=== PATIENT | male | born 1985 | race Caucasian/White ===

== ENCOUNTER 2016-03-27 19:18 | Inpatient (IN) ==
[2016-03-27] MEDS ORDERED: PANTOPRAZOLE 40 MG VIAL IV STA (20:51)
[2016-03-27] MEDS ORDERED: ONDANSETRON 4 MG/2 ML VIAL IV STA (20:51)
[2016-03-27] MEDS ORDERED: HYDROmorphone 2 MG/1 ML VIAL IV STA (20:51)
[2016-03-27] MEDS ORDERED: ALUM/MAG/SIMETH/LIDO VISC 1:1 30 ML BOTTLE PO STA (20:51)
[2016-03-27] MEDS ORDERED: SODIUM CHLORIDE 0.9% 500 ML IV STA (20:51)
[2016-03-27 20:58] LABS: Basophils % 0.3 % (0.0-0.8); Eosinophils # 0.1 10*3/uL (0.0-0.87); Eosinophils % 0.7 % (0.00-10.9); Hematocrit 45.8 VOL% (42.0-52.0); Hemoglobin 15.2 GM/DL (14.0-18.0); Immature Granulocytes % 0.6 %; Immature Granulocytes Absolute 0.06 #; Lymphocytes # 1.8 10*3/uL (1.4-4.0); Lymphocytes % 18.5 % (21.2-54.2); Mean Corpuscular HGB Conc 33.2 GM/DL (32-36); Mean Corpuscular Hemoglobin 26 PG (27-34); Mean Corpuscular Volume 79.1 FL (87-102); Mean Platelet Volume 11.7 FL (9.6-12.0); Monocytes # 0.7 10*3/uL (0.11-0.8); Monocytes % 6.9 % (1.7-12.7); Platelet Count 197 10*3/uL (130-400); Red Blood Count 5.79 10*6/uL (3.8-5.5); Red Cell Distribution Width 13.9 % (9.3-17.3); White Blood Count 9.6 10*3/uL (4.5-13.71)
[2016-03-27 21:10] LABS: Apearance,Urine CLEAR (Clear); Bilirubin,Urine Negative (Negative); Blood, Urine Negative (Negative); Glucose,Urine (UA) Negative (Negative); Granular Casts,Urine 17 /LPF (0-1); Hyaline Casts,Urine 7 /LPF (0-3); Ketones,Urine Negative (Negative); Mucus,Urine Occasional /LPF (Occasional); Nitrite,Urine Negative (Negative); Protein,Urine Negative; Urine Color Yellow (Yellow); Urine Specific Gravity 1.011 (1.001-1.035); Urine Urobilinogen < 2.0 EU/DL (0.2-1.0); WBC,Urine 2 /HPF (0-6)
--- NOTE | 2016-03-27 21:11 | Emergency Department Note ---
IZainab Sierra, am scribing for, and in the presence of, Eleazar Lisa MD 20:56. Sloan Will Charles R, MD, personally performed the services described in this documentation, ascribed by Chandni Lamb in my presence, and it is both accurate and complete . Arrival - Arrival Chief Complaint: Abdominal / Flank Pain Stated Complaint: ABDOMINAL PAIN/NAUSEA/VOMITING ED Nursing Triage Note: C/C abdominal pain, N/V/D started . Has got worse since. Mode of Arrival: Ambulatory Limitations: No Limitations Source: Patient Time Seen by Provider: 03/27/16 20:42 - History of Present Illness HPI Narrative: Pt is a 31 y/o male that came to the ED with c/o central abdominal pain that radiated to both sides of his back that started February. He has associated sxs of N/V/D but denies fever. Pt states he did notice some blood in stool. Pt reports pain is constant just superior to the umbilicus but pain in sides and back come and go. He has a PMHx of HTN and is being treated for possible DM. No other complaints/pain in ED. Onset (ago): day(s) Consistency: constant Allergies/Adverse Reactions: Allergies Allergy/AdvReac Type Severity Reaction Status Date / Time No Known Allergies Allergy Unverified 03/27/16 19:40 Home Medications: Home Medications Medication Instructions Recorded Confirmed Type Ciprofloxacin Tab [Cipro Tab] 500 mg PO Q12HR 10 Days 03/27/16 Rx HYDROcodone/ACETAMIN 10-325 [[place] 1 tablet PO Q6H PRN #20 tablet 03/27/16 Rx 10-325] Lisinopril 20 mg PO DAILY 03/27/16 03/27/16 History Omeprazole [Prilosec] 20 mg PO DAILY 03/27/16 03/27/16 History Ondansetron [Ondansetron Odt] 8 mg PO Q4H PRN #10 tab.rapdis 03/27/16 Rx metFORMIN [Glucophage] 500 mg PO BID W/MEALS 03/27/16 03/27/16 History metroNIDAZOLE TAB [Flagyl Tab] 250 mg PO TID 10 Days 03/27/16 Rx Review of System - Review of System 12 point system: reviewed and no additional remarkable complaints except as stated - Review of System Constitutional: Absent: chills, fever Respiratory: Absent: cough, respiratory distress Cardiovascular: Absent: chest pain Gastrointestinal: Present: abdominal pain (superior to umbilicus), nausea, vomiting, diarrhea, hematochezia Musculoskeletal: Present: back pain (bilaterally radiating from constant pain in abdomen). Absent: arm pain Skin: Absent: rash Neurological: Absent: headache Psychiatric: Absent: anxiety Medical,Surgical,& Family Hx - Medical History Cardio: History of: Hypertension Endocrine: History of: Diabetes Mellitus (NIDDM) - Social History Smoking Status: Current every day smoker Frequency of Alcohol Use: Occasionally Type of Drug Use: None Exam Vital Signs: Vital Signs Temperature 98 F 03/27/16 19:37 Pulse Rate 93 H 03/27/16 22:21 Respiratory Rate 17 03/27/16 22:21 Blood Pressure 111/79 03/27/16 22:21 O2 Sat by Pulse Oximetry 96 03/27/16 22:21 - General General appearance: alert, in no apparent distress - Head Head exam: Present: atraumatic, normocephalic - Eye Eye exam: Present: PERRL, EOMI - ENT ENT exam: Present: mucous membranes moist. Absent: mucous membranes dry - Neck Neck exam: Present: full ROM. Absent: tenderness - Chest Chest inspection: Present: symmetric chest wall rise. Absent: tenderness - Respiratory Respiratory exam: Present: normal lung sounds bilaterally. Absent: respiratory distress - Cardiovascular Cardiovascular exam: Present: tachycardia (slightly), normal heart sounds - Abdominal Exam Abdominal exam: Present: soft, tenderness (diffuse abdomen tenderness), diminished bowel sounds - Extremities Exam Extremities exam: Present: full ROM. Absent: tenderness - Back Exam Back exam: Present: full ROM. Absent: tenderness - Neurological Exam Neurological exam: Present: alert, oriented X3, CN II-XII intact. Absent: motor sensory deficit - Psychiatric Psychiatric exam: Present: normal affect, normal mood - Skin Skin exam: Present: warm, dry Course - Reevaluation(s) Reevaluation #1: Patient was offered admission to the hospital because his continued mild abdominal pain. CT shows colitis. Patient is refusing admission to the hospital said he'll come back if things get worse like to try by mouth antibiotics and conservative therapy at home he'll return if things worsen Time: 23:11 Results - Labs CBC & BMP: 03/27/16 20:19 03/27/16 20:19 Lab Results: I have reviewed the patients labs Labs: Laboratory Tests 03/27/16 20:19 RBC 5.79 H MCV 79.1 L MCH 26 L Lymph % (Auto) 18.5 L Laboratory Tests 03/27/16 20:19 Urine Urobilinogen < 2.0 H Laboratory Tests 03/27/16 20:19 Albumin/Globulin Ratio 1.0 L Amylase 23 L - Diagnostic Findings Procedure: Abdominal x-ray: report reviewed by me (No specific process is suggested within the abdomen or pelvis), Chest x-ray: report reviewed by me (No evidence of acute pathology), CT Abdomen and Pelvis: report reviewed by me (1. Short segment of distal sigmoid/upper rectum demonstrates wall thickening that persists in the delayed phase it has differential considerations including focal inflammatory change. 2. Findings compatible with hepatic steatosis.) Disposition Clinical Impression: Abdominal pain, Colitis, Gastroenteritis Case discussed with: patient, patient's family Disposition: Disch To Home/Self Care Condition: Stable Additional Instructions: Push fluids. Return to the ER for any acute changes. Follow-up primary care doctor Prescriptions: Ciprofloxacin Tab [Cipro Tab] 500 mg PO Q12HR 10 Days HYDROcodone/ACETAMIN 10-325 [[place] 10-325] 1 tablet PO Q6H PRN #20 tablet PRN Reason: Pain Ondansetron [Ondansetron Odt] 8 mg PO Q4H PRN #10 tab.rapdis PRN Reason: Nausea metroNIDAZOLE TAB [Flagyl Tab] 250 mg PO TID 10 Days Time of Disposition: 23:13 Contact your physician if you experience:: fever over 101, Difficulty voiding, Redness or swelling, Nausea/Vomiting, Shortness of breath, Bleeding, pain uncontrolled by pain medications, Other Return to the Emergency Department if:: fever over 101, Difficulty voiding, Redness or swelling, Nausea/Vomiting, Shortness of breath, Bleeding, pain uncontrolled by pain medications, Other
[2016-03-27] MEDS ORDERED: HYDROmorphone 2 MG/1 ML VIAL ONE (21:12)
[2016-03-27] MEDS ORDERED: PANTOPRAZOLE 40 MG VIAL IV ONE (21:12)
[2016-03-27] MEDS ORDERED: ONDANSETRON 4 MG/2 ML VIAL ONE (21:12)
[2016-03-27] MEDS ORDERED: ALUM/MAG/SIMETH/LIDO VISC 1:1 30 ML BOTTLE PO ONE (21:13)
--- NOTE | 2016-03-27 21:15 | XRay Report ---
XR abdomen 2V Indication: Abdominal pain. Comparison: None. Technique: Flat and erect images of the abdomen were performed. Findings: Lung bases are clear. No organomegaly suggested. The bowel gas pattern demonstrates no significant abnormality. Bony structures as well as soft tissues demonstrate no evidence of significant pathology. Impression: 1. No specific process is suggested within the abdomen or pelvis. 03/27/2016 9:11 PM PROCEDURE INTERPRETED AT [facility] DEPARTMENT OF RADIOLOGY Final Report Signed by: Dr. Hayder Gutierrez
--- NOTE | 2016-03-27 21:15 | XRay Report ---
XR chest 1V portable Indication: Abdominal pain. Comparison: None. Technique: Portable AP chest was performed. Findings: Heart size, mediastinal contour, and hilar structures demonstrate no evidence of acute pathology. Lungs are clear. Bones and soft tissues demonstrate no evidence of acute pathology. Impression: 1. No evidence of acute pathology. 03/27/2016 9:11 PM PROCEDURE INTERPRETED AT [facility] DEPARTMENT OF RADIOLOGY Final Report Signed by: Dr. Hayder Gutierrez
[2016-03-27 21:21] LABS: Alanine Aminotransferase 61 U/L (16-61); Albumin 3.8 G/DL (3.4-5.0); Alkaline Phosphatase 74 U/L (45-117); Amylase 23 U/L (25-115); Aspartate Amino Transferase 35 U/L (0-37); Blood Urea Nitrogen 7 MG/DL (7-18); Calcium 8.7 MG/DL (8.5-10.1); Glucose 99 MG/DL (74-106); Potassium 3.8 MMOL/L (3.5-5.1); Sodium 143 MMOL/L (136-145); Total Protein 7.3 G/DL (6.4-8.3); Troponin I Only < 0.015 NG/ML (0.00-0.045)
--- NOTE | 2016-03-27 22:29 | CT Report ---
CT abdomen pelvis w con Indication: Generalized abdominal pain. Comparison: None. Technique: CT of the abdomen and pelvis was performed following administration of intravenous contrast. Findings: Liver demonstrates diffusely low attenuation suggesting hepatic steatosis. Spleen is minimally enlarged measuring 17.8 5.3 x 10.8 cm. Significance of this is uncertain. Minimal diverticulosis of the colon is present. A short segment of rectum/distal sigmoid image #140 demonstrates evidence of wall thickening which persists on the delayed phase. This involves a short segment of bowel and while this may simply reflect lack of distention, focal inflammatory process is not entirely excluded. Otherwise, the imaged structures of the lower chest, liver, spleen, pancreas, adrenal glands, kidneys, aorta, inferior vena cava, stomach, bowel, and intrapelvic contents as well as bony structures soft tissues and musculature the body wall demonstrate no evidence of significant pathology. Impression: 1. Short segment of distal sigmoid/upper rectum demonstrates wall thickening that persists in the delayed phase it has differential considerations including focal inflammatory change. 2. Findings compatible with hepatic steatosis. 03/27/2016 9:56 PM PROCEDURE INTERPRETED AT [facility] DEPARTMENT OF RADIOLOGY Final Report Signed by: Dr. Hayder Gutierrez
[2016-03-27] MEDS ORDERED: LEVOFLOXACIN 750 MG TABLET PO STA (23:14)
[2016-03-27] MEDS ORDERED: metroNIDAZOLE 500 MG TABLET PO STA (23:14)
[2016-03-27] MEDS ORDERED: LEVOFLOXACIN 750 MG TABLET ONE (23:23)
[2016-03-27] MEDS ORDERED: metroNIDAZOLE 500 MG TABLET ONE (23:23)
[2016-03-28] MEDS ORDERED: ONDANSETRON 4 MG/2 ML VIAL IV PRN (00:29)
[2016-03-28] MEDS ORDERED: DEXTROSE 50% 25 GM/50 ML VIAL IV PRN (00:32)
[2016-03-28] MEDS ORDERED: GLUCAGON 1 MG VIAL IM PRN (00:32)
--- NOTE | 2016-03-28 00:49 | Hospitalist History & Physical ---
Assessment and Plan (1) Abdominal pain Status: Acute Current Visit: Yes (2) Colitis Status: Acute Current Visit: Yes (3) Gastroenteritis Status: Acute Assessment and plan: Plan for this patient #1 admit the patient our service #2 IV antibiotics #[address] #4 pain control #5 home meds appropriate Current Visit: Yes History of Present Illness Chief complaint: abdominal pain History of present illness: Mr. Shook is a 31 year old male with past medical history of diabetes and hyper pretension who was his normal state of health till last . Patient developed a sharp periumbilical pain that radiated both sides to his back. He reported that he had nausea vomiting diarrhea on Saturday. By Saturday his symptoms had resolved. Within the symptoms returned today and he came up to our hospital further evaluation I was consulted to admit the patient based on results of the CT scan which showed a short segment of the distal sigmoid demonstrated wall thickening that include focal inflammatory change. Home Medications Medication Instructions Recorded Confirmed Type Ciprofloxacin Tab [Cipro Tab] 500 mg PO Q12HR 10 Days 03/27/16 Rx HYDROcodone/ACETAMIN 10-325 [[place] 1 tablet PO Q6H PRN #20 tablet 03/27/16 Rx 10-325] Lisinopril 20 mg PO DAILY 03/27/16 03/27/16 History Omeprazole [Prilosec] 20 mg PO DAILY 03/27/16 03/27/16 History Ondansetron [Ondansetron Odt] 8 mg PO Q4H PRN #10 tab.rapdis 03/27/16 Rx metFORMIN [Glucophage] 500 mg PO BID W/MEALS 03/27/16 03/27/16 History metroNIDAZOLE TAB [Flagyl Tab] 250 mg PO TID 10 Days 03/27/16 Rx Allergies Allergy/AdvReac Type Severity Reaction Status Date / Time No Known Allergies Allergy Unverified 03/27/16 19:40 Medical,Surgical,& Family Hx - Medical History Cardio: History of: Hypertension Endocrine: History of: Diabetes Mellitus (NIDDM) - Social History Smoking Status: Current every day smoker Frequency of Alcohol Use: Occasionally Type of Drug Use: None 12 point system: reviewed and no additional remarkable complaints except as stated Exam - Constitutional Vitals: Period Temp Pulse Resp BP Sys/Chavez Pulse Ox Last 24 Hr 98 F 86-103 17-22 111-162/79-98 96-100 - General General appearance: alert, in no apparent distress - Head Head exam: Present: atraumatic, normocephalic - Eye Eye exam: Present: PERRL, EOMI - ENT ENT exam: Present: mucous membranes moist. Absent: mucous membranes dry - Neck Neck exam: Present: full ROM. Absent: tenderness - Chest Chest inspection: Present: symmetric chest wall rise. Absent: tenderness - Respiratory Respiratory exam: Present: normal lung sounds bilaterally. Absent: respiratory distress - Cardiovascular Cardiovascular exam: Present: regular rate and rhythm normal heart sounds - Abdominal Exam Abdominal exam: Present: soft, tenderness (diffuse abdomen tenderness), diminished bowel sounds - Extremities Exam Extremities exam: Present: full ROM. Absent: tenderness - Back Exam Back exam: Present: full ROM. Absent: tenderness - Neurological Exam Neurological exam: Present: alert, oriented X3, CN II-XII intact. Absent: motor sensory deficit - Psychiatric Psychiatric exam: Present: normal affect, normal mood - Skin Skin exam: Present: warm, dry Results - Labs CBC & BMP: 03/27/16 20:19 03/27/16 20:19
[2016-03-28] MEDS ORDERED: HYDROmorphone 2 MG/1 ML VIAL IV PRN (01:24)
[2016-03-28] MEDS: SODIUM CHLORIDE 0.9% 1,000 ML IV SCH ×2 (02:30→18:15)
[2016-03-28 06:18] LABS: Basophils % 0.3 % (0.0-0.8); Eosinophils # 0.1 10*3/uL (0.0-0.87); Hematocrit 40.5 VOL% (42.0-52.0); Hemoglobin 13.1 GM/DL (14.0-18.0); Immature Granulocytes % 0.7 %; Immature Granulocytes Absolute 0.05 #; Lymphocytes # 1.7 10*3/uL (1.4-4.0); Lymphocytes % 23.6 % (21.2-54.2); Mean Corpuscular HGB Conc 32.3 GM/DL (32-36); Mean Corpuscular Hemoglobin 26 PG (27-34); Mean Corpuscular Volume 80.4 FL (87-102); Mean Platelet Volume 11.7 FL (9.6-12.0); Monocytes # 0.7 10*3/uL (0.11-0.8); Neutrophils # 4.7 10*3/uL (1.4-7.4); Neutrophils % 65.4 % (38.7-73.9); Platelet Count 169 10*3/uL (130-400); Red Blood Count 5.04 10*6/uL (3.8-5.5); Red Cell Distribution Width 14.2 % (9.3-17.3); White Blood Count 7.2 10*3/uL (4.5-13.71)
[2016-03-28 06:44] LABS: Calcium 8.2 MG/DL (8.5-10.1); Osmolality,Calculated 280.1 MOS/KG (273-304); Potassium 3.8 MMOL/L (3.5-5.1)
[2016-03-28 06:54] LABS: Band Neutrophils 2 % (0-10); Eosinophils 1 % (0-10); Hypochromasia Slight; Lymphocytes 25 % (20-55); Microcytosis 1+; Segmented Neutrophils 61 % (50-85); Total Cells Counted 100
[2016-03-28 06:55] LABS: Platelet Estimate Adequate
[2016-03-28] MEDS: metroNIDAZOLE INJ 500 MG in PREMIX 1 EACH IV SCH ×3 (08:17→20:36)
[2016-03-28] MEDS: INSULIN REGULAR 100 UNIT/ML SUBCUT SCH ×4 (08:24→20:37)
[2016-03-28] MEDS: PANTOPRAZOLE 40 MG TABLET PO SCH (08:26)
[2016-03-28] MEDS: LISINOPRIL 20 MG TABLET PO SCH (08:27)
--- NOTE | 2016-03-28 09:01 | Hospitalist Progress Note ---
Assessment and Plan (1) Abdominal pain Status: Acute Assessment and plan: Abdominal pain is less today. CT scan was compatible with colitis. I have consulted GI. Current Visit: Yes Hospitalist: Subjective Interval history: He is feeling somewhat better today. Exam - Constitutional Vitals: Period Temp Pulse Resp BP Sys/Chavez Pulse Ox Last 24 Hr 97.9 F 75-87 18-20 100/45 95 General appearance: no acute distress - Head Head exam: Present: normal inspection - Neck Neck exam: Present: normal inspection - Respiratory Respiratory exam: Present: clear to auscultation bilaterally - Cardiovascular Cardiovascular exam: Present: regular rate and rhythm - GI/Abdominal GI/Abdominal exam: Present: normal bowel sounds, soft, other (nontender) - Extremities Exam Extremities exam: Present: normal inspection - Skin Skin exam: Present: normal color Results - Labs CBC & BMP: 03/28/16 05:45 03/28/16 05:45 Specialty Discharge - Follow Up or Referrals - Discharge Medications New Ciprofloxacin Tab [Cipro Tab] 500 mg PO Q12HR 10 Days HYDROcodone/ACETAMIN 10-325 [[place] 10-325] 1 tablet PO Q6H PRN #20 tablet PRN Reason: Pain Ondansetron [Ondansetron Odt] 8 mg PO Q4H PRN #10 tab.rapdis PRN Reason: Nausea metroNIDAZOLE TAB [Flagyl Tab] 250 mg PO TID 10 Days No Action metFORMIN [Glucophage] 500 mg PO BID W/MEALS Omeprazole [Prilosec] 20 mg PO DAILY Lisinopril 20 mg PO DAILY
--- NOTE | 2016-03-28 10:32 | EKG Report ---
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
[2016-03-28] MEDS: ENOXAPARIN 40 MG/0.4 ML SYRINGE SUBCUT SCH (10:35)
--- NOTE | 2016-03-28 10:56 | Gastrointestinal Consult Note ---
<Mame Hsieh - Last Filed: 03/28/16 10:45> Assessment and Plan (1) Colitis Status: Acute Assessment and plan: 1/4-Week long history of abd pain with diarrhea, nausea, vomiting. Findings on CT noted of short segment wall thickening of distal sigmoid/upper rectum. WBC 7. Afebrile. Obtain stool studies. Plan and addendum to follow by Dr Holt. Current Visit: Yes History of Present Illness Chief complaint: Abd pain, diarrhea, colitis History of present illness: Mr. Shook is a 31 year old male who presented to the ER with a week long history of abdominal pain, nausea, vomiting and diarrhea. Pt states that last Saturday he began not feeling well and had an onset of diarrhea. States that the diarrhea happened at 10-12 stools throughout the day without any abdominal pain. He states that this continued Saturday and stopped that afternoon however he had onset of nausea and vomiting and the diarrhea returned. This time with midumbilical pain that spread across the lower abdomen and into his back. He had chills associated with this but no fever. He felt better over the weekend despite having off and on episodes of diarrhea. States on yesterday the pain worsened and thats when he decided to seek medical attention. He states that he has had upwards of 10-12 stools almost daily since onset, with no melena or hematochezia. He had had no coffee grounds or hematemesis. Denies fever or weight loss. He brought forth that he was treated for upper resp infection for a week prior to onset of his diarrhea with antibiotics. Denies any prior GI history other than has had off and on episodes of diarrhea for years. He denies any family history other than pt father has had "stomach issues " his whole life but denies any knowledge of IBD. Pt denies being exposed to anyone who has been ill recently. He has a history of HTN and DM. He was initially to be discharged home from ER yesterday with Cipro and Flagyl which is on home med list however pain was too severe at that time therefore he was admitted. CT of abdomen with contrast noted to show wall thickening of short segment of distal sigmoid and upper rectum, also hepatic steatosis. WBC normal at 7.2. Home Medications Medication Instructions Recorded Confirmed Type Ciprofloxacin Tab [Cipro Tab] 500 mg PO Q12HR 10 Days 03/27/16 Rx HYDROcodone/ACETAMIN 10-325 [[place] 1 tablet PO Q6H PRN #20 tablet 03/27/16 Rx 10-325] Lisinopril 20 mg PO DAILY 03/27/16 03/28/16 History Omeprazole [Prilosec] 20 mg PO DAILY 03/27/16 03/28/16 History Ondansetron [Ondansetron Odt] 8 mg PO Q4H PRN #10 tab.rapdis 03/27/16 Rx metFORMIN [Glucophage] 500 mg PO BID W/MEALS 03/27/16 03/28/16 History metroNIDAZOLE TAB [Flagyl Tab] 250 mg PO TID 10 Days 03/27/16 Rx Allergies Allergy/AdvReac Type Severity Reaction Status Date / Time No Known Allergies Allergy Unverified 03/27/16 19:40 Medical,Surgical,& Family Hx - Medical History Cardio: History of: Hypertension No history of: Aneurysm, Cardiac Dysrhythmia, Cerebrovascular Disease, Congenital Heart Disease, CHF, CAD, PA, Pacemaker, PVD, Valvular Heart Disease Psychological: No history of: Anxiety Disorders, ADHD, Behavior Problems, Bipolar Disorder, Depression, Previous Suicide Attempt, Psychiatric/Substance Abuse Tx, Schizophrenia, Violent Behavior, Psychiatric Problems Neurology: No history of: Brain Aneurysm, Cerebral Hemorrhage, Cerebrovascular Accident , Cerebral Palsy, Dementia, Migraine, Multiple Sclerosis, Parkinson's Disease, Peripheral Neuropathy, Seizures, TIA, Vertigo, Neurologocal Cancer HEENT: No history of: Ear Problem, Eye Problem, Dental Problems, Glaucoma, Oral Cancer, HEENT Problems Endocrine: History of: Diabetes Mellitus (NIDDM) No history of: Adrenal Disease, Diabetes Mellitus (IDDM), Dyslipidemia, Thyroid Disorder, Endocrine Cancer Rheumatology: No history of;: Fibromyalgia, Gout, Myasthenia Gravis, Psoriasis, Rheumatoid Arthritis, Sjogrens, Systemic Lupus Erythematosus, Rheumatological Problems Respiratory: History of: Bronchitis, Intubation (for surgery as a child), Obstructive Sleep Apnea (to see Dr. Sloan on 04/11/16) No history of: Asthma, COPD, Pulmonary Embolism, Pulmonary Hypertension, Pneumonia, Lung Cancer Renal: No history of: Renal (Kidney) Cancer, Dialysis, Renal Failure, Renal Problems Genitourinary: No history of: Bladder Problem, Kidney Stones, Prostate Problems, Recurring Urinary Tract Infections, Genitourinary Cancer, Problems Gastrointestinal: History of: GERD No history of: Bowel Obstruction, Clostridium Difficile, Crohn's Disease, Diverticulitis/ Diverticulosis, Esophageal Varices, Gastrointestinal Bleed, Hemorrhoids, Hematochezia, Hepatitis, Liver Problems, Pancreatitis, Polyps, Ulcerative Colitis, Gastrointestinal Cancer Musculoskeletal: No history of: Amputation, Back/Neck Problems, Degenerative Disk Disease, Herniated Disk, Osteoporosis, Musculoskeletal Cancer, Musculoskeletal Problems Hematology: No history of: Anemia, Blood Transfusion Reaction, Bleeding Problems, Clotting Problems, Sickle Cell Disease, Hematologic Cancer, Blood Disorders Reproductive: No histroy: Penile Disorder, Sexually Transmitted Disease Other: History of: Anesthesia Reactions No history of: Anaphylaxis, Cancer, Eczema, HIV, Malignant Hyperthermia, MRSA , Vancomycin-Resistant Enterococci, Skin Problems, Miscellaneous Medical Problems - Surgical History Cardiac Surgeries: Patient Denies: Femoral-Popliteal Bypass Graft, Cardiac Catheterization, Cardiac Surgery, Carotid Endarterectomy, Internal Defibrillator, Vascular Access Devices Thoracic Surgeries: Patient denies;: Kidney (Renal Surgery), Lithotripsy, Nephrectomy, Organ Transplant, Lobectomy Neurologic Surgeries: Patient denies: Brain Aneurysm, Cerebral Hemorrhage, Neurologic Surgery HEENT Surgeries: Surgical HX of: Tonsilectomy & Adenoidectomy (around 1991) Patient denies: Carotid Endarterectomy, Eye Surgery, Thyroid Surgery Abdominal Surgeries: Patient denies: Abdominal Surgery, Appendectomy, Cholecystectomy, Colonoscopy , Gastric Bypass Surgery, EGD, Hernia Repair, Splenectomy Reproductive Surgeries: Patient denies;: Cystoscopy, Genitourinary Surgery, Prostate Surgery, Vasectomy Orthopedic Surgeries: Patient denies;: Implanted Devices, Orthopedic Surgery, Spinal Surgery, Total Hip Replacement, Total Knee Replacement - Family History Family History: Reports;: Family Diabetes (father), Family Heart Disease (father ), Family Hypertension (father and mother and maternal grandmother) Denies;: Family Anesthesia Reaction, Family Cancer, Family Hematology, Family Psychiatric Problems, Family Stroke, Additional Family History - Social History Smoking Status: Current every day smoker Frequency of Alcohol Use: Occasionally Type of Drug Use: None 12 point system: reviewed and no additional remarkable complaints except as stated - Constitutional Constitutional: Present: as per HPI - EENT Eyes: Present: as per HPI Ears: Present: as per HPI Nose, mouth and throat: Present: as per HPI - Cardiovascular Cardiovascular: Present: as per HPI - Respiratory Respiratory: Present: as per HPI - Gastrointestinal Gastrointestinal: Present: as per HPI, abdominal pain, cramping, diarrhea, loose stools, nausea, vomiting - Genitourinary Genitourinary: Present: as per HPI - Musculoskeletal Musculoskeletal: Present: as per HPI - Neurological Neurological: Present: as per HPI - Psychiatric Psychiatric: Present: as per HPI - Endocrine Endocrine: Present: as per HPI - Hematologic/Lymphatic Hematologic/Lymphatic: Present: as per HPI Exam - Constitutional Vitals: Period Temp Pulse Resp BP Sys/Chavez Pulse Ox Last 24 Hr 97.9 F 75-87 18-20 100/45 95 General appearance: no acute distress, over weight - Head Head exam: Present: normal inspection, normocephalic - Eye Eye exam: Present: other (lids and conjunctiva unremarkable). Absent: scleral icterus - ENT ENT exam: Present: normal exam, normal oropharynx - Neck Neck exam: Present: normal inspection - Respiratory Respiratory exam: Present: clear to auscultation bilaterally. Absent: rales, rhonchi, wheezes - Cardiovascular Cardiovascular exam: Present: regular rate and rhythm. Absent: diastolic murmur , JVD, systolic murmur - GI/Abdominal GI/Abdominal exam: Present: normal bowel sounds, soft. Absent: ascites, distended, mass, organomegaly, tenderness - Extremities Exam Extremities exam: Present: normal inspection, full ROM - Back Exam Back exam: Present: normal inspection - Neurological Exam Neurological exam: Present: alert, oriented X3 - Psychiatric Psychiatric exam: Present: normal affect, normal mood - Skin Skin exam: Present: normal color, warm, dry Results - Labs CBC & BMP: 03/28/16 05:45 03/28/16 05:45 Lab Results: I have reviewed the past 24 hour labs - Diagnostic Findings Procedure: CT Abdomen and Pelvis: report reviewed by me Specialty Discharge - Follow Up or Referrals - Discharge Medications New Ciprofloxacin Tab [Cipro Tab] 500 mg PO Q12HR 10 Days HYDROcodone/ACETAMIN 10-325 [[place] 10-325] 1 tablet PO Q6H PRN #20 tablet PRN Reason: Pain Ondansetron [Ondansetron Odt] 8 mg PO Q4H PRN #10 tab.rapdis PRN Reason: Nausea metroNIDAZOLE TAB [Flagyl Tab] 250 mg PO TID 10 Days No Action metFORMIN [Glucophage] 500 mg PO BID W/MEALS Omeprazole [Prilosec] 20 mg PO DAILY Lisinopril 20 mg PO DAILY <Gino Holt - Last Filed: 03/28/16 18:10> History of Present Illness History of present illness: Mr. Shook is a 31 year old male Exam - Constitutional Vitals: Period Temp Pulse Resp BP Sys/Chavez Pulse Ox Last 24 Hr 97.9 F 75-87 18-20 100/45 95 Results - Labs CBC & BMP: 03/28/16 05:45 03/28/16 05:45
[2016-03-28] MEDS ORDERED: BISACODYL 5 MG TABLET PO ONE (12:00)
[2016-03-28] MEDS ORDERED: POLYETHYLENE GLYCOL POWDER 255 GM BOTTLE PO ONE (18:00)
[2016-03-28] MEDS ORDERED: LEVOFLOXACIN INJ 750 MG in PREMIX 1 EACH IV SCH (21:00)
[2016-03-28] MEDS ORDERED: MAGNESIUM CITRATE 300 ML BOTTLE PO ONE (21:00)
[2016-03-29] MEDS: metroNIDAZOLE INJ 500 MG in PREMIX 1 EACH IV SCH ×3 (02:02→13:43)
[2016-03-29] MEDS: INSULIN REGULAR 100 UNIT/ML SUBCUT SCH ×2 (08:00→11:30)
[2016-03-29] MEDS: SODIUM CHLORIDE 0.9% 1,000 ML IV SCH (08:54)
[2016-03-29] MEDS: ENOXAPARIN 40 MG/0.4 ML SYRINGE SUBCUT SCH (08:54)
[2016-03-29] MEDS: PANTOPRAZOLE 40 MG TABLET PO SCH ×2 (08:55→13:58)
[2016-03-29] MEDS: LISINOPRIL 20 MG TABLET PO SCH ×2 (08:55→13:52)
--- NOTE | 2016-03-29 10:27 | Hospitalist Progress Note ---
Assessment and Plan (1) Abdominal pain Status: Acute Assessment and plan: Abdominal pain is less today. CT scan was compatible with colitis. He is to undergo colonoscopy today. Current Visit: Yes Exam - Constitutional Vitals: Period Temp Pulse Resp BP Sys/Chavez Pulse Ox Last 24 Hr 97.2 F-98.2 F 69-84 16-20 100-153/50-95 95-100 General appearance: no acute distress - Head Head exam: Present: normal inspection - Neck Neck exam: Present: normal inspection - Respiratory Respiratory exam: Present: clear to auscultation bilaterally - Cardiovascular Cardiovascular exam: Present: regular rate and rhythm - GI/Abdominal GI/Abdominal exam: Present: normal bowel sounds, soft, other (nontender) - Extremities Exam Extremities exam: Present: normal inspection - Skin Skin exam: Present: normal color Results - Labs CBC & BMP: 03/28/16 05:45 03/28/16 05:45 Specialty Discharge - Follow Up or Referrals - Discharge Medications New Ciprofloxacin Tab [Cipro Tab] 500 mg PO Q12HR 10 Days HYDROcodone/ACETAMIN 10-325 [[place] 10-325] 1 tablet PO Q6H PRN #20 tablet PRN Reason: Pain Ondansetron [Ondansetron Odt] 8 mg PO Q4H PRN #10 tab.rapdis PRN Reason: Nausea metroNIDAZOLE TAB [Flagyl Tab] 250 mg PO TID 10 Days No Action metFORMIN [Glucophage] 500 mg PO BID W/MEALS Omeprazole [Prilosec] 20 mg PO DAILY Lisinopril 20 mg PO DAILY
[2016-03-29] MEDS ORDERED: PROPOFOL 200 MG/20 ML VIAL IV ONE (11:39)
[2016-03-29] MEDS ORDERED: LIDOCAINE 2% 5 ML VIAL ONE (11:39)
--- NOTE | 2016-03-29 11:58 | History and Physical Update ---
History and Physical Update - Physical Exam Mental Status: alert and oriented Heart: regular rate and rhythm Lung: clear to auscultation Abdomen: within normal limits Vitals: within normal limits
--- NOTE | 2016-03-29 12:00 | Operative Note ---
Date of procedure: 03/29/16 Pre-op diagnosis: abdominal pain with abnormal CT Procedure: Colonoscopy with biopsy 31-year-old gentleman with abdominal pain CT scan suggesting thickening in the left colon for possible colitis now for colonoscopy to further evaluate. Informed him obtained the patient. He was sedated with Mac anesthesia per anesthesia protocol. Withdrawal time 7 minutes. Patient placed in left lateral decubitus position digital exam revealed no rectal masses and normal prostate. The Olympus flexible video colonoscope certainly canal advanced under direct vision to the level terminal ileum cecum. Findings: Terminal ileum-normal Cecum-normal Ascending colon-normal Transverse colon-normal Descending colon-normal Sigmoid colon-normal Rectum-normal to direct retroflex views. Random biopsies were taken with cold cup biopsy forceps throughout the colon for possible microscopic colitis. Postop diagnosis essentially normal colonoscopy continue antibiotics for suspected bacterial colitis follow-up path when available. Anesthesia: MAC Surgeon / Physician: Gino Holt Estimated blood loss: none Specimens: other (microscopic colitis) Condition: stable Disposition: post procedure unit Results - Labs CBC & BMP: 03/28/16 05:45 03/28/16 05:45 Discharge Plan - Discharge Medications New Ciprofloxacin Tab [Cipro Tab] 500 mg PO Q12HR 10 Days HYDROcodone/ACETAMIN 10-325 [[place] 10-325] 1 tablet PO Q6H PRN #20 tablet PRN Reason: Pain Ondansetron [Ondansetron Odt] 8 mg PO Q4H PRN #10 tab.rapdis PRN Reason: Nausea metroNIDAZOLE TAB [Flagyl Tab] 250 mg PO TID 10 Days No Action metFORMIN [Glucophage] 500 mg PO BID W/MEALS Omeprazole [Prilosec] 20 mg PO DAILY Lisinopril 20 mg PO DAILY - Follow Up or Referral - Forms/Instructions Instructions: Ciprofloxacin (By mouth), Hydrocodone/Acetaminophen (By mouth), Metronidazole (By mouth), Ondansetron (By mouth)
--- NOTE | 2016-03-29 12:04 | Anesthesia ---
Anesthesia Post OP - Post Ansesthetic Evaluation Patient seen in post op: Yes Resp: within normal limits CV: within normal limits Mental: within normal limits Temp: within normal limits Nebt-[id number]-Zzeoejvde: within normal limits Nausea and Vomiting: within normal limits Pain: within normal limits
[2016-03-29] MEDS ORDERED: ONDANSETRON 4 MG/2 ML VIAL ONE (12:20)
--- NOTE | 2016-03-29 14:30 | Discharge Summary ---
Hospital Course - Hospital Course Hospital Course: Mr. Shook was hospitalized with severe nabdominal pain. A CT scan of the abdomen and pelvis was compatible with colitis of the sigmoid colon. He was treated with IV antibiotics with rapid improvement of his symptoms. He underwent a colonoscopy by Dr. Christian demonstrating a normal colon. At the time of discharge, he felt well and wished to go home. Antibiotics were continued at the recommendation of GI for possible bacterial colitis. - Time spent with patient Time with patient DS: Less than 30 minutes Diagnosis - Discharge Diagnosis (1) Abdominal pain Status: Acute Specialty Discharge - Follow Up or Referrals - Discharge Medications New Ciprofloxacin Tab [Cipro Tab] 500 mg PO Q12HR 10 Days HYDROcodone/ACETAMIN 10-325 [[place] 10-325] 1 tablet PO Q6H PRN #20 tablet PRN Reason: Pain Ondansetron [Ondansetron Odt] 8 mg PO Q4H PRN #10 tab.rapdis PRN Reason: Nausea metroNIDAZOLE TAB [Flagyl Tab] 250 mg PO TID 10 Days No Action metFORMIN [Glucophage] 500 mg PO BID W/MEALS Omeprazole [Prilosec] 20 mg PO DAILY Lisinopril 20 mg PO DAILY Discharge Plan - Discharge Data Condition at Discharge: Stable Discharge Diet: advance to your usual diet Activity: resume usual activities as tolerated Hygiene: no restrictions - Discharge Medications New Ciprofloxacin Tab [Cipro Tab] 500 mg PO Q12HR 10 Days HYDROcodone/ACETAMIN 10-325 [[place] 10-325] 1 tablet PO Q6H PRN #20 tablet PRN Reason: Pain Ondansetron [Ondansetron Odt] 8 mg PO Q4H PRN #10 tab.rapdis PRN Reason: Nausea metroNIDAZOLE TAB [Flagyl Tab] 250 mg PO TID 10 Days Continue metFORMIN [Glucophage] 500 mg PO BID W/MEALS Discontinued Omeprazole [Prilosec] 20 mg PO DAILY Lisinopril 20 mg PO DAILY - Follow Up or Referral - Forms/Instructions Instructions: Ciprofloxacin (By mouth), Hydrocodone/Acetaminophen (By mouth), Metronidazole (By mouth), Ondansetron (By mouth) Exam - Constitutional Vitals: Period Temp Pulse Resp BP Sys/Chavez Pulse Ox Last 24 Hr 97.2 F-98.2 F 69-80 15-22 100-160/50-95 95-100 General appearance: no acute distress - Head Head exam: Present: normal inspection - Neck Neck exam: Present: normal inspection - Respiratory Respiratory exam: Present: clear to auscultation bilaterally - Cardiovascular Cardiovascular exam: Present: regular rate and rhythm - GI/Abdominal GI/Abdominal exam: Present: normal bowel sounds, soft, other (nontender) - Extremities Exam Extremities exam: Present: normal inspection - Skin Skin exam: Present: normal color Discharge Results Procedures and tests throughout hospitalization: Pending Orders 03/28/16 16:50 Occult Blood, Stool Routine Stool Culture Routine Stool for WBCs Routine Labs on day of discharge: Labs from last 24 hours 03/29/16 03/28/16 03/28/16 08:39 20:19 15:50 POC Glucose 97 90 86 Preliminary micro results at discharge 03/28/16 16:50 Stool Culture - Preliminary Stool No enteric pathogens at 12 hrs DS: Provider Date of admission: 03/28/16 00:29 Primary care physician: . No PCP Attending physician on admission: Sarwat Jones Consults: 03/28/16 01:52 Consult to Pastoral Services [CONS] Routine Comment: Pastoral Screen: Request Redrawer Visit Pastoral Screen Source of Request: Patient 03/28/16 08:45 Consult to Physician [CONS] Routine Comment: ?colitis Consulting Provider: Gino Holt Person Notified: GIGI Date Notified: 03/28/16 Time Notified: 09:09 Discharging clinician: Sarwat Jones Expected date of discharge: 03/29/16
[2016-03-29 16:26] VITALS: BP 116/74
--- NOTE | 2016-04-01 09:18 | Pathology Report from [facility] ---
ACCESSION # : [id number] PATIENT NAME : Jose Shook ORDERING DR : INÉS PIERCE MD CLINICAL HX: Abdominal pain POST-OP DX: ? Microscopic colitis SPECIMEN INFO: Random colon biopsy GROSS DESCRIPTION: The specimen is received in formalin labeled with the patient 's name and consists of a 1.0 x 0.6 cm aggregate of aguilar mucosal tissue. Submitted in one cassette. DIAGNOSIS FOR JOSE SHOOK: RANDOM COLON BIOPSIES: Unremarkable colon mucosa, no acute or chronic inflammation seen. Tryptase immunostain NEGATIVE for increased mast cells. SERVICE DATE: 03/29/2016 REPORT DATE: 03/30/2016 PATHOLOGIST: Jose Valderrama M.D. [facility]ice
== END 2016-03-29 16:15 | disposition home or self-care (01) | DRG 392 ==
LOC: N.ED 19:18 → N.EDINP 03-28 00:29 → N.2E 03-28 01:05
PROC: COLONBX (2016-03-29 09:05)

== ENCOUNTER 2019-04-17 16:07 | Inpatient (IN) ==
[2019-04-17] MEDS ORDERED: SODIUM CHLORIDE 0.9% 1,000 ML IV STA (16:23)
[2019-04-17] MEDS ORDERED: VANCOMYCIN INJ 2,250 MG in SODIUM CHLORIDE 0.9% 250 ML IV STA (16:23)
[2019-04-17 17:09] LABS: Basophils # 0.1 10*3/uL (0.0-0.2); Basophils % 0.4 % (0.0-0.8); Eosinophils # 0.1 10*3/uL (0.0-0.87); Eosinophils % 0.8 % (0.00-10.9); Hematocrit 51.3 VOL% (42.0-52.0); Hemoglobin 17.4 GM/DL (14.0-18.0); Immature Granulocytes % 0.5 %; Immature Granulocytes Absolute 0.06 #; Lymphocytes # 2.3 10*3/uL (1.4-4.0); Lymphocytes % 18.7 % (21.2-54.2); Mean Corpuscular HGB Conc 33.9 GM/DL (32-36); Mean Corpuscular Volume 78.8 FL (87-102); Mean Platelet Volume 12.2 FL (9.6-12.0); Monocytes % 4.9 % (1.7-12.7); Neutrophils % 74.7 % (38.7-73.9); Platelet Count 214 T/CUMM (130-400); Red Blood Count 6.51 MC/CUMM (3.8-5.5); Red Cell Distribution Width 13.4 % (9.3-17.3); White Blood Count 12.1 T/CUMM (4-12)
[2019-04-17 17:25] LABS: Calcium 9.2 MG/DL (8.5-10.1); Osmolality,Calculated 278.4 MOS/KG (273-304)
[2019-04-17] MEDS ORDERED: VANCOMYCIN INJ 2,250 MG in SODIUM CHLORIDE 0.9% 500 ML IV STA (17:40)
[2019-04-17] MEDS ORDERED: hydrALAZINE 20 MG/1 ML VIAL IV PRN (18:38)
[2019-04-17] MEDS ORDERED: ZALEPLON 5 MG CAPSULE PO PRN (18:39)
[2019-04-17] MEDS ORDERED: guaiFENesin/DM ER 600-30 MG TABLET PO PRN (18:39)
[2019-04-17] MEDS ORDERED: PROMETHAZINE 25 MG TABLET PO PRN (18:39)
[2019-04-17] MEDS ORDERED: diphenhydrAMINE CAP 25 MG CAPSULE PO PRN (18:39)
[2019-04-17] MEDS ORDERED: GLUCAGON 1 MG VIAL IM PRN (18:39)
[2019-04-17] MEDS ORDERED: MORPHINE 4 MG/1 ML VIAL IV PRN (18:39)
[2019-04-17] MEDS ORDERED: DEXTROSE 50% 25 GM/50 ML VIAL IV PRN ×2 (18:39)
[2019-04-17] MEDS ORDERED: ACETAMINOPHEN 325 MG TABLET PO PRN (18:39)
[2019-04-17] MEDS ORDERED: ONDANSETRON 4 MG/2 ML VIAL IV PRN (18:39)
[2019-04-17] MEDS ORDERED: ROSUVASTATIN 20 MG TABLET PO SCH (21:00)
[2019-04-17] MEDS ORDERED: ENOXAPARIN 40 MG/0.4 ML SYRINGE SUBCUT SCH (21:00)
[2019-04-17] MEDS: CLINDAMYCIN INJ 600 MG in PREMIX 1 EACH IV SCH (22:29)
[2019-04-17] MEDS: SODIUM CHLORIDE 0.9% 1,000 ML IV SCH (22:29)
[2019-04-17] MEDS: INSULIN LISPRO 100 UNIT/ML SUBCUT SCH (22:30)
[2019-04-18] MEDS: CLINDAMYCIN INJ 600 MG in PREMIX 1 EACH IV SCH ×2 (05:23→14:36)
[2019-04-18 06:28] LABS: Basophils % 0.4 % (0.0-0.8); Eosinophils # 0.2 10*3/uL (0.0-0.87); Eosinophils % 1.6 % (0.00-10.9); Immature Granulocytes % 0.4 %; Immature Granulocytes Absolute 0.04 #; Lymphocytes # 2.8 10*3/uL (1.4-4.0); Lymphocytes % 27.9 % (21.2-54.2); Mean Corpuscular HGB Conc 32.9 GM/DL (32-36); Mean Corpuscular Volume 80.1 FL (87-102); Mean Platelet Volume 12.2 FL (9.6-12.0); Monocytes % 6.5 % (1.7-12.7); Neutrophils % 63.2 % (38.7-73.9); Platelet Count 181 T/CUMM (130-400); Red Blood Count 5.62 MC/CUMM (3.8-5.5); Red Cell Distribution Width 13.4 % (9.3-17.3)
[2019-04-18 06:29] LABS: Hemoglobin 14.8 GM/DL (14.0-18.0)
[2019-04-18 06:31] LABS: Calcium 8.6 MG/DL (8.5-10.1)
[2019-04-18] MEDS: SODIUM CHLORIDE 0.9% 1,000 ML IV SCH ×2 (07:50→11:39)
[2019-04-18] MEDS ORDERED: VANCOMYCIN INJ 2,000 MG in SODIUM CHLORIDE 0.9% 500 ML IV SCH (08:00)
[2019-04-18] MEDS ORDERED: POTASSIUM CHLORIDE 20 MEQ TABLET PO ONE (08:18)
[2019-04-18] MEDS ORDERED: ROSUVASTATIN 20 MG TABLET PO SCH (09:00)
[2019-04-18] MEDS ORDERED: metFORMIN 500 MG TABLET PO SCH (09:00)
[2019-04-18] MEDS ORDERED: LISDEXAMFETAMINE 60 MG PO SCH (09:00)
[2019-04-18] MEDS ORDERED: LISINOPRIL/HCTZ 10-12.5 MG TABLET PO SCH (09:00)
[2019-04-18] MEDS ORDERED: NICOTINE 21 MG/24 HR PATCH TRANSDERM SCH (09:00)
[2019-04-18] MEDS ORDERED: buPROPion XL 150 MG TABLET PO SCH ×2 (09:00)
[2019-04-18] MEDS ORDERED: PANTOPRAZOLE 40 MG TABLET PO SCH ×2 (09:00)
[2019-04-18] MEDS ORDERED: INSULIN GLARGINE 100 UNIT/ML SUBCUT SCH (09:00)
[2019-04-18] MEDS ORDERED: SERTRALINE 100 MG TABLET PO SCH (09:00)
[2019-04-18] MEDS ORDERED: LISINOPRIL/HCTZ 20-12.5 MG TABLET PO SCH (09:00)
[2019-04-18] MEDS: INSULIN LISPRO 100 UNIT/ML SUBCUT SCH ×2 (09:56→11:55)
[2019-04-18 12:10] VITALS: BP 101/54
[2019-04-18] MEDS ORDERED: glipiZIDE 5 MG TABLET PO SCH (16:30)
== END 2019-04-18 15:51 | disposition home or self-care (01) | DRG 717 ==
LOC: N.ED 16:07 → N.EDINP 18:39 → N.5E 20:32
PROVIDERS: ADMIT Internal Medicine; ATTEND Internal Medicine